=== PATIENT | female | born 1950 | race Caucasian/White ===

== ENCOUNTER 2025-03-11 10:12 | Emergency (ER) | payer MEDICARE, OTHER ==
[~2025-03-11] VITALS: Ht 165.1 cm; Wt 64.0 kg
[2025-03-11 11:39] LABS: BASO # 0.0 10^3/uL (0.0-0.2); BASO % 0.2 % (0.0-1.0); EOS # 0.1 10^3/uL (0.0-0.5); EOS % 1.0 % (0.0-3.0); LYMPH # 1.1 10^3/uL (1.5-5.0); LYMPH % 20.7 % (24.0-44.0); MONO # 0.4 10^3/uL (0.0-0.8); MONO % 7.1 % (2.0-8.0); NEUTROPHILS # 3.7 10^3/uL (1.5-8.5); NEUTROPHILS % 70.8 % (36.0-66.0); PLATELET COUNT, AUTOMATED 242 10^3/uL (150-450)
[2025-03-11 11:51] LABS: INR 0.82
[2025-03-11 12:14] LABS: ALT/SGPT 23 U/L (7.0-40); AST/SGOT 22 U/L (<34); CK-MB VALUE MASS 1.9 NG/ML (<3.6); CPK CREATINE PHOSPHOKINASE 85 U/L (34-145); MB/CK RELATIVE INDEX 2.23 (< OR =4)
[2025-03-11] MEDS ORDERED: ROSU10TA61 PO (12:30)
[2025-03-11] MEDS ORDERED: SYNT88TA2 PO (12:30)
[2025-03-11] MEDS ORDERED: ZOLP10TA2 PO (12:36)
[2025-03-11] MEDS ORDERED: HOME MED LIST COMPLETE! XX SCH (12:40)
[2025-03-11 12:47] LABS: MAGNESIUM LEVEL 1.8 MG/DL (1.8-2.4)
[2025-03-11 14:09] LABS: CK-MB VALUE MASS 1.8 NG/ML (<3.6)
[2025-03-11 14:24] LABS: CPK CREATINE PHOSPHOKINASE 84 U/L (34-145); MB/CK RELATIVE INDEX 2.14 (< OR =4)
[2025-03-11] MEDS ORDERED: ISOVUE-370 76% 100 ML VIAL As Ordered ONE (14:53)
[2025-03-11] MEDS ORDERED: HOLTER MONITOR XX (15:00)
[2025-03-11] MEDS: NS 500 ML IV ONE (15:04)
[2025-03-11 15:16] VITALS: BP 186/85; TEMP 98.2; O2SAT 100
== END 2025-03-11 15:45 | disposition home or self-care (01) ==
LOC: M ED 10:12
DX: R00.2 Palpitations (principal); R42 Dizziness and giddiness; R00.1 Bradycardia, unspecified; E03.9 Hypothyroidism, unspecified; J98.11 Atelectasis; I45.10 Unspecified right bundle-branch block; G43.909 Migraine, unspecified, not intractable, without status migrainosus; Z79.899 Other long term (current) drug therapy
CPT/HCPCS: 71045; 71275; 80047; 80076; 82550; 82553; 83690; 83735; 84443; 84484; 85025; 85610; 93005; 93041; 94760; 96360; 99285; Q9967

== ENCOUNTER → 2025-03-16 | Outpatient (CLI) | payer MEDICARE, OTHER ==
[~2025-03-16] MED LIST: HOLTER MONITOR XX; ROSU10TA61 PO; SYNT88TA2 PO; ZOLP10TA2 PO
== END ==
LOC: M EKG 11:01
PROVIDERS: ATTEND Physician Assistant Medical
DX: R00.2 Palpitations (principal)